=== PATIENT | male | born 1960 | race Caucasian/White ===

== ENCOUNTER 2024-08-11 06:03 | Day surgery (SDC) | payer BC, SELFPAY ==
[2024-08-11] VITALS (10 sets, daily range): BP systolic 112–156; BP diastolic 70–91
[2024-08-11] MEDS: NORMOSOL-R/PLASMALYTE-A 1000 IV (08:35)
[2024-08-11] MEDS: TYLENOL 1000 MG PO (08:35)
--- NOTE | 2024-08-11 10:19 | OR.RPT ---
Operative Report
Operative Report
Primary Surgeon: Cassi
Assisting: Belem GOMEZ
Pre-op Diagnosis: Umbilical hernia and left flank lipoma
Post-op Diagnosis: Incarcerated umbilical hernia and left flank lipoma
Procedure Performed: Robot assisted laparoscopic repair of incarcerated umbilical hernia (rTAPP) and excision of lipoma (2x3cm)
Anesthesia Type: GETA + TAP block
Specimen / Cultures: Lipoma
Estimated Blood Loss: 10cc
Complications: None immediate
Operative Findings: 1.5cm defect with incarcerated fatty contents. 11cm bard soft mesh.
Date of surgery: 08/11/24
Indications:� This 63M developed a symptomatic umbilical hernia. Robot assisted laparoscopic repair was planned.
Description of procedure:� The patient was taken to the operating room and positioned into supine position. The patient�s abdomen was prepped and draped in standard sterile fashion. A time-out was completed verifying correct patient, procedure,
site, positioning, and implants and special equipment prior to beginning this procedure.� The hernia was partially manually reduced after induction. A stab incision was made in the left upper quadrant, a Veress needle was inserted and proper
position was confirmed by aspiration and saline drop test. Following this, pneumoperitoneum was created with insufflation of carbon dioxide to 12 mmHg. Then a 8mm robotic trocar was inserted at the left anterior axillary line at the level of the
umbilicus. The laparoscope was inserted and no injuries were identified in the area. Under direct visualization, the initial trocar was exposed and two 8mm trocars were placed a hand's breadth above and below the initial trocar under direct
visualization.
Attention was turned to the defect. The peritoneum was incised several cm superior to the defect and a peritoneal flap was developed in transverse and caudad directions using blunt and sharp dissection and judicious electrocautery. The defect was
identified and measured as above. Incarcerated fatty contents were reduced. The defect was closed with 0 PDS stratafix suture. A 11cm x 11cm bard soft mesh was passed into the abdomen. It was placed against the underside of the abdominal wall and
secured in place with 2-0 vicryl sutures at all four corners and fdc along each side. The flap was closed over the mesh and secured with 2-0 monocryl stratafix suture. A small rent was noted at the right side of the flap, this was repaired using
a 2-0 monocryl stratafix suture. A 14g angiocath was used to decompress the preperitoneal space. The flap sealed and suctioned nicely up to the abdominal wall. The mesh did not fold nor curl. A transversus abdominis plane block was then performed
under laparoscopic vision with marcaine/decadron.
After ensuring adequate hemostasis, the trocars were removed and the pneumoperitoneum allowed to escape. The trocar incisions were closed at the skin level using 4-0 monocryl and topical skin adhesive. All counts were correct and the patient
tolerated the procedure well and was taken to the postanesthesia care unit in stable condition.
[2024-08-11] MEDS: SUBLIMAZE 25 MCG IV (10:41)
[2024-08-11] MEDS: ZOFRAN 4 MG IV (11:03)
--- NOTE | 2024-08-11 11:12 | SUR.PHASEI ---
post op umbilical hernia repair and excision of lipoma, initially very sleepy, then c/o pain / - medicated with 25mcg of fentanyl with relief. Then c/o vague nausea - used noxious stimuli of alcohol pad near nose, and zofran given IV. now at
11:14, denies pain and nausea subsided.
== END 2024-08-11 12:30 | disposition home or self-care (01) ==
LOC: SDS 06:03
PROVIDERS: ATTENDING PHYSICIAN Surgery
PROC: 0JB80ZZ Excision of Abdomen Subcutaneous Tissue and Fascia, Open Approach (ICD-10-PCS; 2024-08-11)
PROC: 0WUF4JZ Supplement Abdominal Wall with Synthetic Substitute, Percutaneous Endoscopic Approach (ICD-10-PCS; 2024-08-11)
PROC: 8E0W4CZ Robotic Assisted Procedure of Trunk Region, Percutaneous Endoscopic Approach (ICD-10-PCS; 2024-08-11)
DX: K42.0 Umbilical hernia with obstruction, without gangrene (principal); D17.1 Benign lipomatous neoplasm of skin and subcutaneous tissue of trunk
CPT/HCPCS: 49592; 22903; 88304; C1781

== ENCOUNTER → 2025-07-03 14:10 | Outpatient (REF) | payer BC, SELFPAY | LOC: HWRAD 14:10 | PROVIDERS: ATTENDING PHYSICIAN Internal Medicine Hematology & Oncology; FAMILY PHYSICIAN Family Medicine | DX: D68.51 Activated protein C resistance (principal); D69.9 Hemorrhagic condition, unspecified; D64.9 Anemia, unspecified | CPT/HCPCS: 76700 ==

== ENCOUNTER → 2025-09-04 06:50 | Outpatient (REF) | payer BC, SELFPAY | LOC: HWLAB 06:50 | PROVIDERS: ATTENDING PHYSICIAN Internal Medicine Hematology & Oncology; FAMILY PHYSICIAN Family Medicine | DX: D68.51 Activated protein C resistance (principal); D69.6 Thrombocytopenia, unspecified; D64.9 Anemia, unspecified | CPT/HCPCS: 36415 ==

== ENCOUNTER → 2025-09-28 07:32 | Outpatient (REF) | payer BC, SELFPAY ==
[2025-09-28 10:24] LABS: Hematocrit 38.8 % (39.0-52.0); Hemoglobin 12.0 g/dL (13.0-18.0); Mean Corp Hgb Conc. 30.9 g/dL (33.0-37.0); Mean Corpuscular Volume 86.8 fL (80.0-94.0); Nucleated Red Blood Cells % 0 % (-); Platelet Count 159 10^3/uL (130-400); Red Cell Dist. Width 13.2 % (11.5-14.5)
== END ==
LOC: HWLAB 07:32
PROVIDERS: ATTENDING PHYSICIAN Internal Medicine Hematology & Oncology; FAMILY PHYSICIAN Family Medicine
DX: D68.51 Activated protein C resistance (principal); D69.6 Thrombocytopenia, unspecified; D64.9 Anemia, unspecified
CPT/HCPCS: 36415; 82784; 83521; 84155; 84165; 85025; 86334